=== PATIENT | male | born 1965 | race Caucasian/White ===

== ENCOUNTER 2017-05-14 15:55 | Observation (INO) ==
[2017-05-14 16:09] LABS: Bilirubin,Urine Negative (Negative); Blood,Urine Negative (Negative); Clarity,Urine Clear (Clear); Color,Urine Yellow (Yellow); Glucose,Urine (UA) Normal (Normal); Ketones,Urine Negative (Negative); Leukocyte Esterase,Urine Negative (Negative); Nitrite,Urine Negative (Negative); Protein,Urine Negative (Neg-Trace); Specific Gravity,Urine 1.026 (1.010-1.025); Urobilinogen,Urine Normal (Normal)
--- NOTE | 2017-05-14 17:34 | Emergency Department Note ---
Disposition Clinical Impression: Chest pain of unknown etiology Disposition: Admitted As Inpatient Condition: Fair General Adult HPI - General Chief complaint: ED Abdominal Pain Stated complaint: epigastric pain Time Seen by Provider: 05/14/17 17:29 Source: patient - History of Present Illness Pain Scale: 6 - Related Data Home Medications Medication Instructions Recorded Confirmed Amlodipine Besylate 10 mg PO DAILY 05/14/17 05/14/17 Cyclobenzaprine [Flexeril] 10 mg PO TID PRN 05/14/17 05/14/17 Gabapentin [Neurontin] 400 mg PO TID 05/14/17 05/14/17 Lisinopril [Zestril] 10 mg PO DAILY 05/14/17 05/14/17 Omeprazole [PriLOSEC] 20 mg PO QAM 05/14/17 05/14/17 Allergies Allergy/AdvReac Type Severity Reaction Status Date / Time Penicillins Allergy See Verified 05/14/17 15:59 Comments Past Medical History - Past Medical History Medical history: Reports: no medical history Psychiatric history: Reports: no psych history - Social History Smoking Status: Current every day smoker Alcohol use: Reports: none Drug use: Reports: none Physical Exam - General General appearance: alert, in no apparent distress Course Vital Signs Temperature 98.4 F 05/14/17 15:57 Pulse Rate 98 05/14/17 15:57 Respiratory Rate 16 05/14/17 15:57 Blood Pressure 168/88 05/14/17 15:57 O2 Sat by Pulse Oximetry 97 05/14/17 15:57 Temperature 98.0 F 05/14/17 23:26 Pulse Rate 69 05/14/17 23:26 Respiratory Rate 17 05/14/17 23:26 Blood Pressure 113/69 05/14/17 23:26 O2 Sat by Pulse Oximetry 95 05/14/17 23:26 Oxygen Delivery Oxygen Delivery Room Air Medical Decision Making - Lab Data Result diagrams: 05/14/17 17:41 05/14/17 17:41 Lab Results 05/14/17 05/14/17 05/14/17 Range/Units 16:05 17:41 17:41 WBC 11.3 H (4.3-11.1) K/mcL RBC 4.65 (4.19-5.50) M/mcL Hgb 14.2 (12.9-16.9) g/dL Hct 42.0 (37.5-50.1) % MCV 90.3 (83.0-100.0) fL MCH 30.5 (28.0-33.3) pg MCHC 33.8 (31.6-35.5) g/dL RDW 14.7 H (11.5-14.5) % Plt Count 349 (140-400) K/mcL MPV 9.4 (9.4-12.4) fL Immature Gran % 1.2 (0-4) % Seg Neutrophils % 67.1 % Lymphocytes % 21.1 % Monocytes % 7.5 % Eosinophils % 2.6 % Basophils % 0.5 % Neutrophils # 7.6 (1.6-8.9) K/mcL Lymphocytes # 2.4 (0.6-4.6) K/mcL Monocytes # 0.9 (0.0-1.3) K/mcL Eosinophils # 0.3 (0.0-0.6) K/mcL Basophils # 0.1 (0.0-0.2) K/mcL Sodium 137 (136-145) mEq/L Potassium 3.7 (3.5-5.1) mEq/L Chloride 105 (98-107) mEq/L Carbon Dioxide 28 (23-29) mEq/L BUN 13 (6-20) mg/dL Creatinine 0.78 (0.70-1.30) mg/dL Est GFR ( Amer) > 60 (> 60) Est GFR (Non-Af Amer) > 60 (> 60) BUN/Creatinine Ratio 17 (6-26) Glucose 148 H (70-105) mg/dL Calculated Osmolality 287 (280-300) Calcium 9.1 (8.6-10.3) mg/dL Total Bilirubin 0.2 L (0.3-1.0) mg/dL Direct Bilirubin 0.0 (0.0-0.2) mg/dL Indirect Bilirubin 0.2 (0.0-1.2) mg/dL AST 30 (13-39) Units/L ALT 72 H (7-52) Units/L Alkaline Phosphatase 65 (34-104) Units/L Troponin I (< 0.04) ng/mL Serum Total Protein 6.7 (6.4-8.9) g/dL Albumin 3.8 (3.5-5.7) g/dL Globulin 2.9 (2.4-3.5) g/dL Albumin/Globulin Ratio 1.3 (1.1-2.2) Lipase 18 (11-82) Units/L Urine Color Yellow (Yellow) Urine Clarity Clear (Clear) Urine pH 6.0 (5.0-8.0) pH Units Ur Specific [place] 1.026 H (1.010-1.025) Urine Protein Negative (Neg-Trace) mg/dL Urine Glucose (UA) Normal (Normal) mg/dL Urine Ketones Negative (Negative) mg/dL Urine Blood Negative (Negative) Urine Nitrite Negative (Negative) Urine Bilirubin Negative (Negative) Urine Urobilinogen Normal (Normal) mg/dL Ur Leukocyte Esterase Negative (Negative) Ur Culture Indicated? NO (NO) 05/14/17 Range/Units 17:41 WBC (4.3-11.1) K/mcL RBC (4.19-5.50) M/mcL Hgb (12.9-16.9) g/dL Hct (37.5-50.1) % MCV (83.0-100.0) fL MCH (28.0-33.3) pg MCHC (31.6-35.5) g/dL RDW (11.5-14.5) % Plt Count (140-400) K/mcL MPV (9.4-12.4) fL Immature Gran % (0-4) % Seg Neutrophils % % Lymphocytes % % Monocytes % % Eosinophils % % Basophils % % Neutrophils # (1.6-8.9) K/mcL Lymphocytes # (0.6-4.6) K/mcL Monocytes # (0.0-1.3) K/mcL Eosinophils # (0.0-0.6) K/mcL Basophils # (0.0-0.2) K/mcL Sodium (136-145) mEq/L Potassium (3.5-5.1) mEq/L Chloride (98-107) mEq/L Carbon Dioxide (23-29) mEq/L BUN (6-20) mg/dL Creatinine (0.70-1.30) mg/dL Est GFR ( Amer) (> 60) Est GFR (Non-Af Amer) (> 60) BUN/Creatinine Ratio (6-26) Glucose (70-105) mg/dL Calculated Osmolality (280-300) Calcium (8.6-10.3) mg/dL Total Bilirubin (0.3-1.0) mg/dL Direct Bilirubin (0.0-0.2) mg/dL Indirect Bilirubin (0.0-1.2) mg/dL AST (13-39) Units/L ALT (7-52) Units/L Alkaline Phosphatase (34-104) Units/L Troponin I < 0.03 (< 0.04) ng/mL Serum Total Protein (6.4-8.9) g/dL Albumin (3.5-5.7) g/dL Globulin (2.4-3.5) g/dL Albumin/Globulin Ratio (1.1-2.2) Lipase (11-82) Units/L Urine Color (Yellow) Urine Clarity (Clear) Urine pH (5.0-8.0) pH Units Ur Specific [place] (1.010-1.025) Urine Protein (Neg-Trace) mg/dL Urine Glucose (UA) (Normal) mg/dL Urine Ketones (Negative) mg/dL Urine Blood (Negative) Urine Nitrite (Negative) Urine Bilirubin (Negative) Urine Urobilinogen (Normal) mg/dL Ur Leukocyte Esterase (Negative) Ur Culture Indicated? (NO) Attestation Statement - Attestation Attestation: I examined this patient and my medical decision-making was reviewed with the Resident Physician. I agree with the documented findings, disposition and treatment plan as described except to the extent set forth below. [id number] time provided Patient presents to the emergency department complaining of upper abdominal pain. He states he was recently at an outside facility and had a workup including a gallbladder ultrasound. He continues to have symptoms. The patient was seen and evaluated in conjunction with the resident physician Dr. Ramos 18:30: test results dated yesterday including ct ABDOMEN / pelvis, GB US, metabolic profile, CBC, CKMB, trop results reviewed by me
[2017-05-14 18:03] LABS: Basophils # 0.1 K/mcL (0.0-0.2); Basophils % 0.5 %; Eosinophils # 0.3 K/mcL (0.0-0.6); Eosinophils % 2.6 %; Hemoglobin 14.2 g/dL (12.9-16.9); Immature Granulocytes % 1.2 % (0-4); Lymphocytes # 2.4 K/mcL (0.6-4.6); Lymphocytes % 21.1 %; Mean Corpuscular HGB Conc 33.8 g/dL (31.6-35.5); Mean Corpuscular Hemoglobin 30.5 pg (28.0-33.3); Mean Corpuscular Volume 90.3 fL (83.0-100.0); Mean Platelet Volume 9.4 fL (9.4-12.4); Monocytes # 0.9 K/mcL (0.0-1.3); Monocytes % 7.5 %; Neutrophils # 7.6 K/mcL (1.6-8.9); Platelet Count 349 K/mcL (140-400); Red Blood Count 4.65 M/mcL (4.19-5.50); Red Cell Distribution Width 14.7 % (11.5-14.5); Segmented Neutrophils % 67.1 %
[2017-05-14 18:20] LABS: Alanine Aminotransferase 72 Units/L (7-52); Albumin 3.8 g/dL (3.5-5.7); Albumin/Globulin Ratio 1.3 (1.1-2.2); Alkaline Phosphatase 65 Units/L (34-104); Aspartate Amino Transferase 30 Units/L (13-39); BUN/Creatinine Ratio 17 (6-26); Bilirubin,Indirect 0.2 mg/dL (0.0-1.2); Bilirubin,Total 0.2 mg/dL (0.3-1.0); Blood Urea Nitrogen 13 mg/dL (6-20); Calcium 9.1 mg/dL (8.6-10.3); Carbon Dioxide 28 mEq/L (23-29); Chloride 105 mEq/L (98-107); Globulin 2.9 g/dL (2.4-3.5); Glucose 148 mg/dL (70-105); Lipase 18 Units/L (11-82); Osmolality,Calculated 287 (280-300); Potassium 3.7 mEq/L (3.5-5.1); Sodium 137 mEq/L (136-145); Total Protein 6.7 g/dL (6.4-8.9); eGFR For African Americans > 60 (> 60); eGFR For Non-African Americans > 60 (> 60)
--- NOTE | 2017-05-14 18:31 | Emergency Department Note ---
Disposition Clinical Impression: Chest pain of unknown etiology, Abdominal pain of unknown cause Disposition: Admitted As Inpatient Condition: Fair Time of Disposition: 19:15 Abdominal Pain HPI - General Chief Complaint: ED Abdominal Pain Stated Complaint: epigastric pain Time Seen by Provider: 05/14/17 17:29 Source: patient Nursing Notes Reviewed: Yes Vital Signs Reviewed: Yes - History of Present Illness HPI Narrative: 52-year-old male complains of right upper quadrant abdominal pain that started 2 weeks ago. Patient states this pain is sharp and has been constant for the past 2 weeks with increasing intensity. Patient's pain currently right now . One at ago patient states he went to [facility] and was evaluated. He had a negative workup to include CT of the abdomen and pelvis for suspicion of acute cholecystitis but patient's workup showed an elevated troponin and patient was offered admission and further evaluation. Patient states that he had a negative stress tests several months ago and refused admission. Patient presents today with no change in his symptoms from yesterday. Pain Scale: 6 - Related Data Home Medications Medication Instructions Recorded Confirmed Amlodipine Besylate 10 mg PO DAILY 05/14/17 05/14/17 Cyclobenzaprine [Flexeril] 10 mg PO TID PRN 05/14/17 05/14/17 Gabapentin [Neurontin] 400 mg PO TID 05/14/17 05/14/17 Lisinopril [Zestril] 10 mg PO DAILY 05/14/17 05/14/17 Omeprazole [PriLOSEC] 20 mg PO QAM 05/14/17 05/14/17 Allergies Allergy/AdvReac Type Severity Reaction Status Date / Time Penicillins Allergy See Verified 05/14/17 15:59 Comments Abdominal Pain PMH - Past Medical History Medical history: Reports: no medical history Male Surgical History: Reports: appendectomy Psychiatric history: Reports: no psych history - Social History Smoking status: Current every day smoker Alcohol use: Reports: none Drug use: Reports: none Physical Exam Vital Signs Temperature 98.4 F 05/14/17 15:57 Pulse Rate 98 05/14/17 15:57 Respiratory Rate 16 05/14/17 15:57 Blood Pressure 168/88 05/14/17 15:57 O2 Sat by Pulse Oximetry 97 05/14/17 15:57 Temperature 98.4 F 05/14/17 15:57 Pulse Rate 98 05/14/17 15:57 Respiratory Rate 16 05/14/17 15:57 Blood Pressure 168/88 05/14/17 15:57 O2 Sat by Pulse Oximetry 97 05/14/17 15:57 Oxygen Delivery Oxygen Delivery Room Air CONSTITUTIONAL: Alert and oriented X3, well-nourished, well appearing, in no apparent distress HEAD: Normocephalic; atraumatic. EYES: PERRL, no scleral icterus. NOSE: The nose is normal in appearance without rhinorrhea RESP: Normal chest excursion with respiration; breath sounds clear and equal bilaterally; no wheezes, rhonchi, or rales CARD: Regular rhythm, without murmurs, rub or gallop ABD: Non-distended; right upper quadrant tenderness to palpation, positive Lucero sign, soft,without rigidity, rebound or guarding SKIN: Normal for age and race; warm and dry; no apparent lesions - General General appearance: alert Course - Reevaluation(s) Reevaluation #1: Patient's labs today shows no elevation of troponin but there was an elevation yesterday at [facility]. Current recommendations for admission. Patient understands and agrees to decision for admission. IV normal saline ordered, and creatinine 324 mg of aspirin ordered and 50 g of fentanyl ordered IV. Time: 18:46 Vital Signs Temperature 98.4 F 05/14/17 15:57 Pulse Rate 98 05/14/17 15:57 Respiratory Rate 16 05/14/17 15:57 Blood Pressure 168/88 05/14/17 15:57 O2 Sat by Pulse Oximetry 97 05/14/17 15:57 Temperature 98.3 F 05/15/17 10:55 Pulse Rate 84 05/15/17 10:55 Respiratory Rate 18 05/15/17 10:55 Blood Pressure 144/82 05/15/17 10:55 O2 Sat by Pulse Oximetry 96 05/15/17 10:55 Oxygen Delivery Oxygen Delivery Room Air Abdominal Pain - MDM Narrative Medical decision making narrative: Patient presents with right upper quadrant pain with initial assessment suspicious for acute cholecystitis given patient's onset of pain 15 minutes after eating greasy foods. Patient had a complete negative workup 1 day ago at [facility] for acute cholecystitis, but his troponin was elevated and he refused admission at that time. Today patient's workup does not show an elevated troponin given his recent elevation recommend admission for trending of troponins and cardiology follow-up. Patient understands and agrees to admission. Patient is currently stable and receiving aspirin 325 mg by mouth, IV normal saline, fentanyl for his pain, Zofran for nausea. Dr. Rios the hospitalist as accepted patient for admission in stable condition at 1914 hrs. - Medical Records Medical records reviewed: Yes I reviewed the patient's medical records. Requested medical records from [facility], Mobile Secretary: CT scan of abdomen and pelvis dated 05/13/2017: Impression by Dr. Webb of radiology states hepatic steatosis, probable 18 mm hepatic hemangioma at the right hepatic dome, atherosclerosis. Lactic acid 1.3, amylase 48, lipase 128, troponin elevated at 0.059, CK-MB elevated at 3.9 Ultrasound of right upper quadrant: Reviewed from records states sludge in an otherwise normal-appearing gallbladder, no intra-or extrahepatic biliary dilatation, common bile duct is within normal limits for diameter - Lab Data Lab results reviewed: Yes I reviewed the patient's lab results. Lab results narrative: Short CBC 05/14/17 Range/Units 17:41 WBC 11.3 H (4.3-11.1) K/mcL Hgb 14.2 (12.9-16.9) g/dL Hct 42.0 (37.5-50.1) % Plt Count 349 (140-400) K/mcL Neutrophils # 7.6 (1.6-8.9) K/mcL BMP 05/14/17 Range/Units 17:41 Sodium 137 (136-145) mEq/L Potassium 3.7 (3.5-5.1) mEq/L Chloride 105 (98-107) mEq/L Carbon Dioxide 28 (23-29) mEq/L BUN 13 (6-20) mg/dL Creatinine 0.78 (0.70-1.30) mg/dL Glucose 148 H (70-105) mg/dL Calcium 9.1 (8.6-10.3) mg/dL Cardiac Enzymes 05/14/17 Range/Units 17:41 Troponin I < 0.03 (< 0.04) ng/mL Liver Function 05/14/17 Range/Units 17:41 Total Bilirubin 0.2 L (0.3-1.0) mg/dL Direct Bilirubin 0.0 (0.0-0.2) mg/dL AST 30 (13-39) Units/L ALT 72 H (7-52) Units/L Alkaline Phosphatase 65 (34-104) Units/L Albumin 3.8 (3.5-5.7) g/dL Urine 05/14/17 Range/Units 16:05 Urine Color Yellow (Yellow) Urine Clarity Clear (Clear) Urine pH 6.0 (5.0-8.0) pH Units Ur Specific [place] 1.026 H (1.010-1.025) Urine Protein Negative (Neg-Trace) mg/dL Urine Glucose (UA) Normal (Normal) mg/dL Result diagrams: 05/15/17 03:16 05/15/17 03:16 Lab Results 05/14/17 05/14/17 05/14/17 Range/Units 16:05 17:41 17:41 WBC 11.3 H (4.3-11.1) K/mcL RBC 4.65 (4.19-5.50) M/mcL Hgb 14.2 (12.9-16.9) g/dL Hct 42.0 (37.5-50.1) % MCV 90.3 (83.0-100.0) fL MCH 30.5 (28.0-33.3) pg MCHC 33.8 (31.6-35.5) g/dL RDW 14.7 H (11.5-14.5) % Plt Count 349 (140-400) K/mcL MPV 9.4 (9.4-12.4) fL Immature Gran % 1.2 (0-4) % Seg Neutrophils % 67.1 % Lymphocytes % 21.1 % Monocytes % 7.5 % Eosinophils % 2.6 % Basophils % 0.5 % Neutrophils # 7.6 (1.6-8.9) K/mcL Lymphocytes # 2.4 (0.6-4.6) K/mcL Monocytes # 0.9 (0.0-1.3) K/mcL Eosinophils # 0.3 (0.0-0.6) K/mcL Basophils # 0.1 (0.0-0.2) K/mcL Sodium 137 (136-145) mEq/L Potassium 3.7 (3.5-5.1) mEq/L Chloride 105 (98-107) mEq/L Carbon Dioxide 28 (23-29) mEq/L BUN 13 (6-20) mg/dL Creatinine 0.78 (0.70-1.30) mg/dL Est GFR ( Amer) > 60 (> 60) Est GFR (Non-Af Amer) > 60 (> 60) BUN/Creatinine Ratio 17 (6-26) Glucose 148 H (70-105) mg/dL Calculated Osmolality 287 (280-300) Calcium 9.1 (8.6-10.3) mg/dL Total Bilirubin 0.2 L (0.3-1.0) mg/dL Direct Bilirubin 0.0 (0.0-0.2) mg/dL Indirect Bilirubin 0.2 (0.0-1.2) mg/dL AST 30 (13-39) Units/L ALT 72 H (7-52) Units/L Alkaline Phosphatase 65 (34-104) Units/L Troponin I (< 0.04) ng/mL Serum Total Protein 6.7 (6.4-8.9) g/dL Albumin 3.8 (3.5-5.7) g/dL Globulin 2.9 (2.4-3.5) g/dL Albumin/Globulin Ratio 1.3 (1.1-2.2) Lipase 18 (11-82) Units/L Urine Color Yellow (Yellow) Urine Clarity Clear (Clear) Urine pH 6.0 (5.0-8.0) pH Units Ur Specific [place] 1.026 H (1.010-1.025) Urine Protein Negative (Neg-Trace) mg/dL Urine Glucose (UA) Normal (Normal) mg/dL Urine Ketones Negative (Negative) mg/dL Urine Blood Negative (Negative) Urine Nitrite Negative (Negative) Urine Bilirubin Negative (Negative) Urine Urobilinogen Normal (Normal) mg/dL Ur Leukocyte Esterase Negative (Negative) Ur Culture Indicated? NO (NO) 05/14/17 Range/Units 17:41 WBC (4.3-11.1) K/mcL RBC (4.19-5.50) M/mcL Hgb (12.9-16.9) g/dL Hct (37.5-50.1) % MCV (83.0-100.0) fL MCH (28.0-33.3) pg MCHC (31.6-35.5) g/dL RDW (11.5-14.5) % Plt Count (140-400) K/mcL MPV (9.4-12.4) fL Immature Gran % (0-4) % Seg Neutrophils % % Lymphocytes % % Monocytes % % Eosinophils % % Basophils % % Neutrophils # (1.6-8.9) K/mcL Lymphocytes # (0.6-4.6) K/mcL Monocytes # (0.0-1.3) K/mcL Eosinophils # (0.0-0.6) K/mcL Basophils # (0.0-0.2) K/mcL Sodium (136-145) mEq/L Potassium (3.5-5.1) mEq/L Chloride (98-107) mEq/L Carbon Dioxide (23-29) mEq/L BUN (6-20) mg/dL Creatinine (0.70-1.30) mg/dL Est GFR ( Amer) (> 60) Est GFR (Non-Af Amer) (> 60) BUN/Creatinine Ratio (6-26) Glucose (70-105) mg/dL Calculated Osmolality (280-300) Calcium (8.6-10.3) mg/dL Total Bilirubin (0.3-1.0) mg/dL Direct Bilirubin (0.0-0.2) mg/dL Indirect Bilirubin (0.0-1.2) mg/dL AST (13-39) Units/L ALT (7-52) Units/L Alkaline Phosphatase (34-104) Units/L Troponin I < 0.03 (< 0.04) ng/mL Serum Total Protein (6.4-8.9) g/dL Albumin (3.5-5.7) g/dL Globulin (2.4-3.5) g/dL Albumin/Globulin Ratio (1.1-2.2) Lipase (11-82) Units/L Urine Color (Yellow) Urine Clarity (Clear) Urine pH (5.0-8.0) pH Units Ur Specific [place] (1.010-1.025) Urine Protein (Neg-Trace) mg/dL Urine Glucose (UA) (Normal) mg/dL Urine Ketones (Negative) mg/dL Urine Blood (Negative) Urine Nitrite (Negative) Urine Bilirubin (Negative) Urine Urobilinogen (Normal) mg/dL Ur Leukocyte Esterase (Negative) Ur Culture Indicated? (NO) - Radiology Data Radiology results reviewed: Yes I reviewed the patient's radiology results. - EKG Data EKG attestation: Yes I reviewed and interpreted this EKG. EKG results narrative: EKG taken 08/2017 at 1730 hrs. shows a sinus rhythm at a rate of 75 beats a minute with no acute ST elevations or depressions any leads, no QRS widening or QT prolongation. No previous EKG for comparison
[2017-05-14] MEDS ORDERED: 0.9 % Sodium Chloride 1,000 ML IVC ONE (19:01)
[2017-05-14] MEDS ORDERED: *HR* FentaNYL (PF) 100 MCG/2 ML VIAL IVP ONE (19:01)
[2017-05-14] MEDS ORDERED: Aspirin 81 MG TAB.CHEW PO ONE (19:03)
[2017-05-14] MEDS ORDERED: Ondansetron 4 MG/2 ML VIAL IVP PRN ×2 (19:07→21:38)
[2017-05-14] MEDS ORDERED: Naloxone 0.4 MG/ML INJ IVP PRN (20:12)
--- NOTE | 2017-05-14 20:29 | Internal Med History&Physical ---
Date of Encounter: 05/14/17 Time of Encounter: 19:30 Assessment and Plan (1) RUQ abdominal pain Current visit: Yes Status: Acute Etiology is undetermined. US liver and Abd CT in [place] yesterday are unremarkable. Pt has mild elevated ALT noticed (72). - Will check hepatitis panel. Pt denies hx of transfusion. Check levels of ferritin, copper, and alpha-1 antitrypsin level. - Will consult GI for further recommendation of workups. (2) Elevated troponin Current visit: Yes Status: Acute Pt has one time mild elevated troponin in [place] ER yesterday. Denies CP, EKG unremarkable. - Cont cardiac monitoring - Track 3 sets of troponin - Placed ECHO as pt has exertional SOB and BW gain recently. (3) HTN (hypertension) Current visit: Yes Status: Acute Cont home meds, f/u BP Qualifiers: Hypertension type: essential hypertension Qualified Code(s): I10 - Essential (primary) hypertension (4) DVT prophylaxis Current visit: Yes Status: Acute heparin SC Internal Medicine - H&P: HPI Chief complaint: RUQ pain Admitted From: Home Plans for Post Hospital Care: Home History of present illness: Mr. Doe is a 52 year old male with Hx of HTN, chronic back pain, asthma, present to ER for RUQ pain for 2-3 weeks. Pt said pain is located on RUQ, sharp , constant, 5-8/10. Pain is aggravated by eating. Pt has nausea and vomited yesterday, which is food, no blood in it. Pt also had fever last week with T 101 -102. Denies diarrhea. Last BM is 3 days ago, stool was brown, denies melena. Pt generally has good appetite and has increased 35LBs in last 4 months. Pt denies chest pain. Has exertional SOB in last week. Pt went to [facility] yesterday and had CT abd and US liver dine, which is unremarkable. He was found mild elevated troponin and CKMB and was advised to be admitted. However, pt refused admission because he had stress test 4 months ago, which was negative. Pt has negative first troponin in our ER today. He was admitted for RUQ pain. Past Med Surg Social Fam HX - Past Medical History Medical history: no medical history Psychiatric history: no psych history - Social History Smoking Status: Current every day smoker Alcohol use: none Drug use: none - Family History Mother History Unknown: Yes Internal Medicine - H&P: Meds Amlodipine Besylate 10 mg PO DAILY 05/14/17 [History] Cyclobenzaprine [Flexeril] 10 mg PO TID PRN 05/14/17 [History] Gabapentin [Neurontin] 400 mg PO TID 05/14/17 [History] Lisinopril [Zestril] 10 mg PO DAILY 05/14/17 [History] Omeprazole [PriLOSEC] 20 mg PO QAM 05/14/17 [History] 3 Allergy/AdvReac Type Severity Reaction Status Date / Time Penicillins Allergy See Verified 05/14/17 15:59 Comments All Systems PM: A 10-system review of systems was performed and is negative for pertinent findings except as documented above in the HPI. - Constitutional Vitals: Temp Pulse Resp BP Pulse Ox 98.4 F 98 16 153/79 97 05/14/17 15:57 05/14/17 15:57 05/14/17 20:14 05/14/17 20:14 05/14/17 15:57 General appearance: Present: A&O X 3, no acute distress, answers questions appropriately - Head Head exam: Present: atraumatic, normocephalic - Eye Eye exam: Present: PERRL, conjuntiva pink, sclera anicteric Pupils: Present: PERRL - Neck Neck exam general surgery: Present: supple, trachea midline. Absent: lymphadenopathy - Respiratory Respiratory exam: Present: CTAB. Absent: accessory muscle use, rales, rhonchi, wheezes - Cardiovascular Cardiovascular exam: Present: RRR, +S1, +S2. Absent: diastolic murmur, gallop, rubs, systolic murmur - GI/Abdominal GI/Abdominal exam: Present: distended (Tenderness on RUQ w/o rebound or guarding ), normal bowel sounds, soft, tenderness, no peritoneal signs - Extremities Exam Extremities exam: Present: warm, radial pulses palpable and symmetrical. Absent : calf tenderness, cyanotic, pedal edema - Neurological Exam Neurological exam: Present: CN II-XII intact, oriented X3, no focal deficits. Absent: pronater drift, facial droop, speech deficit - Skin Skin exam: Present: dry, intact Internal Med - H&P Results - Labs CBC & Chem 7: 05/14/17 17:41 05/14/17 17:41 - EKG Data -: EKG Interpreted by Myself EKG shows normal: sinus rhythm Rate: normal
[2017-05-14] MEDS: Gabapentin 400 MG CAPSULE PO SCH (21:34)
[2017-05-15] MEDS ORDERED: Ondansetron 4 MG/2 ML VIAL IVP SCH
[2017-05-15] MEDS: *HR* HYDROcodone/Acet 5/325 mg TABLET PO PRN ×4 (03:30→21:15)
[2017-05-15 03:43] LABS: Basophils # 0.1 K/mcL (0.0-0.2); Basophils % 0.6 %; Eosinophils # 0.3 K/mcL (0.0-0.6); Eosinophils % 3.4 %; Hematocrit 43.6 % (37.5-50.1); Hemoglobin 14.1 g/dL (12.9-16.9); Immature Granulocytes % 1.8 % (0-4); Lymphocytes # 2.6 K/mcL (0.6-4.6); Lymphocytes % 26.4 %; Mean Corpuscular HGB Conc 32.3 g/dL (31.6-35.5); Mean Corpuscular Hemoglobin 30.1 pg (28.0-33.3); Mean Platelet Volume 9.6 fL (9.4-12.4); Monocytes # 0.9 K/mcL (0.0-1.3); Monocytes % 8.9 %; Neutrophils # 5.7 K/mcL (1.6-8.9); Platelet Count 387 K/mcL (140-400); Red Blood Count 4.69 M/mcL (4.19-5.50); Red Cell Distribution Width 14.6 % (11.5-14.5); Segmented Neutrophils % 58.9 %
[2017-05-15 03:46] LABS: BUN/Creatinine Ratio 16 (6-26); Blood Urea Nitrogen 14 mg/dL (6-20); Carbon Dioxide 29 mEq/L (23-29); Chloride 107 mEq/L (98-107); Chol/HDL Ratio 5.3 (0-4.9); Cholesterol 179 mg/dL (< 200); Glucose 113 mg/dL (70-105); HDL Cholesterol 34 mg/dL (40-59); Magnesium 2.2 mg/dL (1.6-2.6); Osmolality,Calculated 293 (280-300); Potassium 4.3 mEq/L (3.5-5.1); Sodium 141 mEq/L (136-145); eGFR For African Americans > 60 (> 60); eGFR For Non-African Americans > 60 (> 60)
[2017-05-15 04:14] LABS: LDL Cholesterol,Calculated 115 mg/dL (0-99); Triglycerides 150 mg/dL (< 150)
[2017-05-15] MEDS: *HR* Heparin 5,000 UNIT/ML VIAL SQ SCH ×2 (05:57→17:46)
[2017-05-15] MEDS: amLODIPine 5 MG TABLET PO SCH (08:17)
[2017-05-15] MEDS: Gabapentin 400 MG CAPSULE PO SCH ×3 (08:17→21:08)
[2017-05-15] MEDS: Nicotine 21 MG PATCH.TD24 TD SCH (08:17)
[2017-05-15 10:07] LABS: Prothrombin Time 10.8 Seconds (9.4-12.1)
[2017-05-15 10:17] LABS: Albumin 3.8 g/dL (3.5-5.7); Albumin/Globulin Ratio 1.4 (1.1-2.2); Bilirubin,Indirect 0.3 mg/dL (0.0-1.2); Bilirubin,Total 0.3 mg/dL (0.3-1.0); Globulin 2.8 g/dL (2.4-3.5); Total Protein 6.6 g/dL (6.4-8.9)
--- NOTE | 2017-05-15 10:31 | Gastroenterology Consult Note ---
<AbrahamDmitriy chen Ivon - Last Filed: 05/15/17 10:28> Date of Encounter: 05/15/17 Time of Encounter: 10:05 - Assessment and plan (1) RUQ abdominal pain Current Visit: Yes Status: Acute Assessment and plan: RUQ US at [facility] with sludge in an otherwise normal appearing gallbladder, no intra or extra hepatic biliary dilation, CBD normal. Plan for EGD tomorrow to r/ o esophagitis, gastritis, duodenitis, PUD, MW tear, or AVM. Keep patient NPO at midnight. (2) Elevated LFTs Current Visit: Yes Status: Acute Assessment and plan: AST 30, ALT 72, Alk phos 65 on admission. Could be secondary to fatty liver. Complete liver workup (AFP, alpha 1 antitrypsin, LORETA, ANCA, cerulopasmin, F- actin, ferritin, hepatitis profile, AMA, PT/INR, fibrosis score). (3) Hepatic steatosis Current Visit: Yes Status: Acute Assessment and plan: CT A/P at [facility] with hepatic steatosis, probable 18 mm hepatic hemangioma at the right hepatic dome. Complete liver workup (AFP, alpha 1 antitrypsin, LORETA, ANCA, cerulopasmin, F-actin, ferritin, hepatitis profile, AMA, PT/INR, fibrosis score). (4) GERD (gastroesophageal reflux disease) Current Visit: Yes Status: Acute Assessment and plan: Continue PPI and complete EGD tomorrow. Qualifiers: Esophagitis presence: esophagitis presence not specified Qualified Code(s) : K21.9 - Gastro-esophageal reflux disease without esophagitis - Time Spent With Patient Total time spent is greater than 50% in coordination of care (as documented) at patient's floor/unit and/or counseling patient: GI History of Present Illness - Data of Consult Patient: new to practice Consult date: 05/15/17 Requesting Physician: Cindy Ibarra CNP - Consult Narrative Reason for consult: RUQ pain, elevated LFTs History of present illness: Mr. Doe is a 52 year old male with PMHx of HTN, chronic back pain, GERD, asthma who presented to the ED with c/o RUQ pain for the past 2-3 weeks, which is worsened with eating greasy/fatty foods. He reports taking Prevacid for reflux symptoms. Pt reported nausea and vomiting the day before admission, but denied hematemesis. Patient had a complete negative workup 1 day ago at [facility] for acute cholecystitis, but his troponin was elevated and he refused admission at that time. Troponins have not been elevated since admission. CT A/ P at [facility] with hepatic steatosis, probable 18 mm hepatic hemangioma at the right hepatic dome. RUQ US with sludge in an otherwise normal appearing gallbladder, no intra or extra hepatic biliary dilation, CBD normal. He denies any alcohol use. We were consulted to evaluate RUQ pain and elevated LFTs. Procedures: None NSAIDs: Diclofenac Anticoagulation: None Past Med Surg Social Fam HX - Past Medical History Medical history: no medical history Psychiatric history: no psych history - Past Surgical History Surgical History: appendectomy - Social History Smoking Status: Current every day smoker Packs per day: 0.5 Alcohol use: none Drug use: none - Family History Mother History Unknown: Yes Hx Family Cardiac Disorders: Yes (ME with stents) Hx Family Cancer: Yes (breast) - Gastrointestinal Gastrointestinal: Present: as per HPI - Constitutional Constitutional: as per HPI - EENT Eyes: as per HPI Ears: Present: as per HPI Nose, mouth and throat: Present: as per HPI - Cardiovascular Cardiovascular ROS: Present: as per HPI - Respiratory Respiratory IM: Present: as per HPI - Genitourinary Genitourinary: Absent: change in color, Urinary frequency - Neurological ROS Neurological GI: Present: as per HPI - Hematologic/Lymphatic Hematologic/Lymphatic pediatric: Present: as per HPI - Musculoskeletal Musculoskeletal ROS GI: Present: as per HPI - Integumentary Integumentary GI: Present: as per HPI - Psychiatric ROS Psychiatric GI: Present: as per HPI - Endocrine Endocrine IM: Present: as per HPI - Constitutional Vitals: Temp Pulse Resp BP Pulse Ox 97.6 F 70 18 109/68 93 05/15/17 07:19 05/15/17 07:19 05/15/17 07:19 05/15/17 07:19 05/15/17 07:19 General appearance: Present: cooperative, A&O X 3, no acute distress, answers questions appropriately - Head Head exam: Present: atraumatic, normocephalic - Eye Eye exam: Present: normal appearance, sclera anicteric - ENT ENT exam: Present: mucous membranes moist - Neck Neck exam general surgery: Present: normal inspection, trachea midline - Respiratory Respiratory exam: Present: CTAB. Absent: rales, rhonchi - Cardiovascular Cardiovascular exam: Present: RRR, +S1, +S2 - GI/Abdominal GI/Abdominal exam: Present: soft, tenderness (RUQ and epigastric), no peritoneal signs. Absent: distended, firm, guarding Additional comments: obese - Rectal Rectal exam: Present: deferred - Extremities Exam Extremities exam: Present: warm - Neurological Exam Neurological exam: Present: no focal deficits - Psychiatric Psychiatric exam: Present: normal affect, normal mood - Skin Skin exam: Present: dry, intact, normal color, warm Results - Labs CBC & Chem 7: 05/15/17 03:16 05/15/17 03:16 Labs: Last Result Calcium 9.0 mg/dL (8.6-10.3) 05/15/17 03:16 Ferritin 188 ng/ml (20-250) 05/15/17 03:16 Troponin I < 0.03 ng/mL (< 0.04) 05/15/17 03:16 Triglycerides 150 mg/dL (< 150) H 05/15/17 03:16 Entire Visit Hgb 14.1 g/dL (12.9-16.9) 05/15/17 03:16 Hct 43.6 % (37.5-50.1) 05/15/17 03:16 PT 10.8 Seconds (9.4-12.1) 05/15/17 09:21 Ferritin 188 ng/ml (20-250) 05/15/17 03:16 Total Bilirubin 0.3 mg/dL (0.3-1.0) 05/15/17 09:21 AST 35 Units/L (13-39) 05/15/17 09:21 ALT 74 Units/L (7-52) H 05/15/17 09:21 Lipase 18 Units/L (11-82) 05/14/17 17:41 - ABG ABG results: PT/INR, D-dimer PT 10.8 Seconds (9.4-12.1) 05/15/17 09:21 Consult Discharge Plan - Plan Referrals: Hannah Liriano, [employer] [Primary Care Provider] - <Marky Balderrama - Last Filed: 05/15/17 12:00> Date of Encounter: 05/15/17 - Time Spent With Patient Total time spent is greater than 50% in coordination of care (as documented) at patient's floor/unit and/or counseling patient: GI History of Present Illness - Data of Consult Requesting Physician: Cindy Ibarra CNP - Consult Narrative History of present illness: Mr. Doe is a 52 year old male - Constitutional Vitals: Temp Pulse Resp BP Pulse Ox 98.3 F 84 18 144/82 96 05/15/17 10:55 05/15/17 10:55 05/15/17 10:55 05/15/17 10:55 05/15/17 10:55 Results - Labs CBC & Chem 7: 05/15/17 03:16 05/15/17 03:16 Labs: Last Result Calcium 9.0 mg/dL (8.6-10.3) 05/15/17 03:16 Ferritin 188 ng/ml (20-250) 05/15/17 03:16 Troponin I < 0.03 ng/mL (< 0.04) 05/15/17 03:16 Triglycerides 150 mg/dL (< 150) H 05/15/17 03:16 Entire Visit Hgb 14.1 g/dL (12.9-16.9) 05/15/17 03:16 Hct 43.6 % (37.5-50.1) 05/15/17 03:16 PT 10.8 Seconds (9.4-12.1) 05/15/17 09:21 Ferritin 188 ng/ml (20-250) 05/15/17 03:16 Total Bilirubin 0.3 mg/dL (0.3-1.0) 05/15/17 09:21 AST 35 Units/L (13-39) 05/15/17 09:21 ALT 74 Units/L (7-52) H 05/15/17 09:21 Lipase 18 Units/L (11-82) 05/14/17 17:41 - ABG ABG results: PT/INR, D-dimer PT 10.8 Seconds (9.4-12.1) 05/15/17 09:21 - Attending Attestation I have personally performed a face to face evaluation on this patient. I have reviewed and agree with the care plan. History and Exam by me shows:
--- NOTE | 2017-05-15 16:02 | Internal Med Progress Note ---
Date of Encounter: 05/15/17 Time of Encounter: 16:02 - Assessment and plan (1) RUQ abdominal pain Current Visit: Yes Status: Acute Assessment and plan: presented with ABD pain that has been present for months prior to presentation. Outside hospital RUQ US with sludge in an otherwise normal appearing gallbladder, no intra or extra hepatic biliary dilation, CBD normal. Plan for EGD tomorrow to r/o esophagitis, gastritis, duodenitis, PUD, MW tear, or AVM. Keep patient NPO at midnight. (2) Elevated LFTs Current Visit: Yes Status: Acute Assessment and plan: AST 30, ALT 72, Alk phos 65 on admission. Could be secondary to fatty liver. Complete liver workup pending (AFP, alpha 1 antitrypsin, LORETA, ANCA, cerulopasmin , F-actin, ferritin, hepatitis profile, AMA, PT/INR, fibrosis score). GI following (3) GERD (gastroesophageal reflux disease) Current Visit: Yes Status: Acute Assessment and plan: per hx. Cont PPI. EGD in am. GI following Qualifiers: Esophagitis presence: esophagitis presence not specified Qualified Code(s) : K21.9 - Gastro-esophageal reflux disease without esophagitis (4) Hepatic steatosis Current Visit: Yes Status: Acute Assessment and plan: CT A/P at [facility] with hepatic steatosis, probable 18 mm hepatic hemangioma at the right hepatic dome. Complete liver workup (AFP, alpha 1 antitrypsin, LORETA, ANCA, cerulopasmin, F-actin, ferritin, hepatitis profile, AMA, PT/INR, fibrosis score). (5) HTN (hypertension) Current Visit: Yes Status: Acute Assessment and plan: per hx. BP variable but acceptable. Cont home BP medication. Monitor BP and titrate PRN Qualifiers: Hypertension type: essential hypertension Qualified Code(s): I10 - Essential (primary) hypertension (6) DVT prophylaxis Current Visit: Yes Status: Acute Assessment and plan: heparin - Subjective Interval history: Seen and examined at bedside. Patient is neutropenic, information obtained from chart review and patient report. Patient says he still having abdominal pain. Says abdominal pain has been present for over 2 months. He has an appetite. No nausea vomiting or diarrhea. He is aware of need to be nothing by mouth for EGD in the morning. - Constitutional Vitals: Temp Pulse Resp BP Pulse Ox 98.3 F 75 18 151/86 97 05/15/17 15:23 05/15/17 15:23 05/15/17 15:23 05/15/17 15:23 05/15/17 15:23 General appearance: Present: A&O X 3, morbidly obese, no acute distress, answers questions appropriately - Head Head exam: Present: atraumatic, normocephalic - Eye Eye exam: Present: PERRL, conjuntiva pink, sclera anicteric Pupils: Present: PERRL - Neck Neck exam general surgery: Present: supple, trachea midline. Absent: lymphadenopathy - Respiratory Respiratory exam: Present: CTAB. Absent: accessory muscle use, rales, rhonchi, wheezes - Cardiovascular Cardiovascular exam: Present: RRR, +S1, +S2. Absent: diastolic murmur, gallop, rubs, systolic murmur - GI/Abdominal GI/Abdominal exam: Present: normal bowel sounds, soft, no peritoneal signs. Absent: distended, tenderness - Extremities Exam Extremities exam: Present: warm, radial pulses palpable and symmetrical. Absent : calf tenderness, cyanotic, pedal edema - Neurological Exam Neurological exam: Present: CN II-XII intact, oriented X3, no focal deficits. Absent: pronater drift, facial droop, speech deficit - Skin Skin exam: Present: dry, intact Internal Medicine: Result - Labs CBC & Chem 7: 05/15/17 03:16 05/15/17 03:16 Labs: Short CBC 05/15/17 Range/Units 03:16 WBC 9.7 (4.3-11.1) K/mcL Hgb 14.1 (12.9-16.9) g/dL Hct 43.6 (37.5-50.1) % Plt Count 387 (140-400) K/mcL Neutrophils # 5.7 (1.6-8.9) K/mcL BMP 05/15/17 03:16 Sodium 141 Potassium 4.3 Chloride 107 Carbon Dioxide 29 BUN 14 Creatinine 0.90 Glucose 113 H Calcium 9.0 Cardiac Enzymes 05/14/17 05/15/17 Range/Units 20:22 03:16 Troponin I < 0.03 < 0.03 (< 0.04) ng/mL Liver Function 05/15/17 Range/Units 09:21 Total Bilirubin 0.3 (0.3-1.0) mg/dL Direct Bilirubin 0.0 (0.0-0.2) mg/dL AST 35 (13-39) Units/L ALT 74 H (7-52) Units/L Alkaline Phosphatase 63 (34-104) Units/L Albumin 3.8 (3.5-5.7) g/dL - ABG Interpretation ABG results: PT/INR, D-dimer PT 10.8 Seconds (9.4-12.1) 05/15/17 09:21 - Impressions Impressions Echocardiogram 05/15/17 20:15 Impressions: LVEF 60%. Mild left ventricular diastolic dysfunction. Normal right ventricular structure and function. Mild mitral regurgitation. No pulmonary hypertension. Left Ventricular Wall Motion: Rest Echo Findings All wall segments showed normal motion. Findings: Study Quality * Technically adequate exam. ECG Findings * Normal sinus rhythm. Left Ventricle * LVEF 60%. * Normal LV chamber size, wall thickness and function. * Mild left ventricular diastolic dysfunction. Right Ventricle * Normal right ventricular structure and function. Left Atrium * Normal left atrial size. Right Atrium * Normal right atrial size. Aortic Valve * No aortic regurgitation. * Aortic valve not well visualized. * No aortic stenosis. Mitral Valve * No mitral stenosis. * Mild mitral regurgitation. * Normal mitral valve structure. Tricuspid Valve * Tricuspid valve not well visualized. * No tricuspid regurgitation. * Estimated RA pressure is 3 mmHg. * Estimated RVSP is 10 mmHg. * No pulmonary hypertension. Pulmonic Valve * Pulmonic valve is not well visualized. * No pulmonic stenosis. * Trace pulmonic regurgitation. Pulmonary Artery * Pulmonary artery not well visualized. Aorta * Normally sized aortic root. Pericardium * There is no pericardial effusion present. Interatrial Septum * No evidence of PFO by color Doppler. IVC * Normal IVC dimensions and inspiratory collapse. Consult Discharge Plan - Plan Referrals: Hannah Liriano CNP [Primary Care Provider] -
--- NOTE | 2017-05-15 20:50 | Electrocardiograph Report ---
[address] [address] Test Date: 2017-05-14 Pat Name: Fransisco Doe Department: 104 Room: 3B44 Gender: M Contact Center Professional: ENRIQUE : [id number] Requested By: Marques Corrigan Order Number: [id number] Reading MD: Alvin Patrick MD Measurements Intervals [place] Rate: 75 P: 44 NC: 174 QRS: 22 QRSD: 93 T: 53 QT: 365 QTc: 394 Interpretive Statements SINUS RHYTHM BASELINE ARTIFACT COMPLICATES ACCURATE INTERPRETATION Electronically Signed On 05-15-2017 20:49:28 EST by Alvin Patrick MD
[2017-05-16] MEDS ORDERED: Ketorolac 15 MG/ML VIAL IVP PRN (00:42)
[2017-05-16] MEDS: *HR* HYDROcodone/Acet 5/325 mg TABLET PO PRN (04:03)
[2017-05-16 05:11] LABS: Hepatitis A Antibody IgM Nonreactive (Nonreactive); Hepatitis B Core IgM Nonreactive (Nonreactive); Hepatitis B Surface Antigen Nonreactive (Nonreactive); Hepatitis C Virus Antibody Nonreactive (Nonreactive)
[2017-05-16] MEDS: *HR* Heparin 5,000 UNIT/ML VIAL SQ SCH (05:34)
[2017-05-16 08:05] VITALS: BP 136/80
[2017-05-16 08:14] LABS: AFP Tumor Marker Non-Pregnant 4 ng/mL (0-9)
[2017-05-16] MEDS: amLODIPine 5 MG TABLET PO SCH (08:34)
[2017-05-16] MEDS: Gabapentin 400 MG CAPSULE PO SCH (08:35)
[2017-05-16] MEDS: Nicotine 21 MG PATCH.TD24 TD SCH (08:35)
[2017-05-17 07:44] LABS: ANA IgG by ELISA NONE DETECTED (None Detected); F-Actin (sm muscle) Ab IgG 9 Units (0-19); Myeloperoxidase Ab 2 AU/mL (0-19); Serine Protease-3 Antibody 1 AU/mL (0-19)
--- NOTE | 2017-05-28 07:59 | Discharge Summary ---
Date of Encounter: 05/17/17 Time of Encounter: 13:00 - Discharge Diagnosis (1) RUQ abdominal pain Priority: Primary Status: Acute Comments: presented with ABD pain that has been present for months prior to presentation. Outside hospital RUQ US with sludge in an otherwise normal appearing gallbladder, no intra or extra hepatic biliary dilation, CBD normal. Plan for EGD tomorrow to r/o esophagitis, gastritis, duodenitis, PUD, MW tear, or AVM. Plan was for EGD however patient left AMA (2) Elevated LFTs Priority: Primary Status: Acute Comments: AST 30, ALT 72, Alk phos 65 on admission. Could be secondary to fatty liver. Complete liver workup pending (AFP, alpha 1 antitrypsin, LORETA, ANCA, cerulopasmin , F-actin, ferritin, hepatitis profile, AMA, PT/INR, fibrosis score). GI planning EGD however patient left AMA (3) GERD (gastroesophageal reflux disease) Priority: Primary Status: Acute Comments: per hx. Cont PPI. Qualifiers: Esophagitis presence: esophagitis presence not specified Qualified Code(s) : K21.9 - Gastro-esophageal reflux disease without esophagitis (4) Hepatic steatosis Priority: Primary Status: Acute Comments: CT A/P at [facility] with hepatic steatosis, probable 18 mm hepatic hemangioma at the right hepatic dome. Complete liver workup (AFP, alpha 1 antitrypsin, LORETA, ANCA, cerulopasmin, F-actin, ferritin, hepatitis profile, AMA, PT/INR, fibrosis score). presented with ABD pain that has been present for months prior to presentation. Outside hospital RUQ US with sludge in an otherwise normal appearing gallbladder, no intra or extra hepatic biliary dilation, CBD normal. Plan for EGD tomorrow to r/o esophagitis, gastritis, duodenitis, PUD, MW tear, or AVM. Keep patient NPO at midnight. (5) HTN (hypertension) Priority: Secondary Status: Acute Comments: per hx. BP variable but acceptable. Cont home BP medication. Qualifiers: Hypertension type: essential hypertension Qualified Code(s): I10 - Essential (primary) hypertension - Discharge Medications Home Medications: Amlodipine Besylate 10 mg PO DAILY 05/14/17 [History] Cyclobenzaprine [Flexeril] 10 mg PO TID PRN 05/14/17 [History] Gabapentin [Neurontin] 400 mg PO TID 05/14/17 [History] Lisinopril [Zestril] 10 mg PO DAILY 05/14/17 [History] Omeprazole [PriLOSEC] 20 mg PO QAM 05/14/17 [History] Allergies/Adverse Reactions: 3 Allergy/AdvReac Type Severity Reaction Status Date / Time Penicillins Allergy See Verified 05/14/17 15:59 Comments Date of admission: 05/14/17 19:33 Primary care physician: Hannah Liriano CNP Consults: 05/14/17 20:16 Consult to Gastroenterology [CONS] Routine Consulting Provider: Gastroenterology Crissy Reason for Consult: RUQ pain, mild elevated ALT Call Completed: No Discharging clinician: Sonia Flores Anticipated date of discharge: 05/17/17 - Patient Status Disposition: Left Against Medical Advice Condition: Fair - Discharge Instructions Follow Up With: Hannah Liriano CNP [Primary Care Provider] - Interval History: Patient left AMA before being seen or examined Hospital course: See assessment and plan for hospital course - Time Spent with Patient Total time spent providing and/or coordinating discharge services: - Constitutional Vitals: Temp Pulse Resp BP Pulse Ox 97.7 F 67 15 136/80 95 05/16/17 08:04 05/16/17 08:04 05/16/17 08:04 05/16/17 08:04 05/16/17 08:04 General appearance: Present: A&O X 3, morbidly obese, no acute distress, answers questions appropriately
== END 2017-05-16 11:18 | disposition left against medical advice (07) ==
LOC: 3BNU 15:55 → EMEROO 15:55 → 3BNU 20:30
PROVIDERS: ADMIT Pediatrics; ATTEND Registered Nurse